=== PATIENT | female | born 1985 | race Caucasian/White ===

== ENCOUNTER 2016-07-04 00:25 | Emergency (ER) | payer OTHER ==
--- NOTE | 2016-07-04 01:46 | ED CLINICAL REPORT ---
Clinical Report - Physicians/Mid Levels [facility] [address] [place] [address] 07/04/2016 0:26 Patient: JUNIOR BOWLES Time Seen: 00:51. Arrived- By private vehicle. Historian- patient. HISTORY OF PRESENT ILLNESS Chief Complaint: COUGH, CHILLS, MUSCLE ACHES and "FLU". This started yesterday and is still present. It was gradual in onset and has been constant and waxing/waning. The illness is described as moderate. The patient has had a cough, a sore throat, nasal congestion, a subjective fever and muscle aches. She has had a nasal discharge. No sputum production. She has had mild chest discomfort (with coughing). REVIEW OF SYSTEMS No chills, fever, sweats, calf pain or chest pain. No cough, difficulty breathing, pedal edema, palpitations or abdominal pain. No constipation, diarrhea, nausea, vomiting or urinary problems. All systems otherwise negative, except as recorded above. PAST HISTORY Problems: Obesity. Sprain. ANXIETY. DEPRESSION. UTICARIA. GERD. Diabetes Mellitus. Additional Surgeries: Appendectomy. Medications: A DIABETIC MEDICATION PT UNSURE OF. Novalog (sliding scale ). HydrOXYzine HCl Oral. Omeprazole Oral. Sertraline HCl Oral. SulfaSALAzine Oral. Allergies: Amoxicillin. SOCIAL HISTORY Former smoker. No alcohol use or drug use. FAMILY HISTORY No significant family medical history. ADDITIONAL NOTES The nursing notes have been reviewed. PHYSICAL EXAM Vital Signs: 07/04/2016 00:43 BP: 135/77. HR: 71. RR: 20. O2 saturation: 97%. Temp: 98.5 F. Pain level now: 7/10. Have been reviewed. Appearance: Alert. She is morbidly obese. Eyes: Pupils equal, round and reactive to light. ENT: Minimal, thin, clear nasal discharge present. Pharynx normal. Uvula midline. Neck: Normal inspection. Neck supple. CVS: Normal heart rate and rhythm. Heart sounds normal. Respiratory: No respiratory distress. Breath sounds normal. Abdomen: Soft and nontender. No organomegaly. Back: Normal inspection. No CVA tenderness. Skin: Skin warm and dry. Normal skin color. Normal skin turgor. Extremities: Extremities exhibit normal ROM. No lower extremity edema. PROGRESS AND PROCEDURES Course of Care: Patient is stable. Patient/family counseled. Old medical records ordered. Disposition: Discharged. Condition: stable. CLINICAL IMPRESSION Acute upper respiratory infection. INSTRUCTIONS Drink plenty of fluids. Warnings: GENERAL WARNINGS: Return or contact your physician immediately if your condition worsens or changes unexpectedly, if not improving as expected, or if other problems arise. OTC Medications: Acetaminophen (available over the counter): take according to label instructions. Motrin (available over the counter): take according to label instructions. Follow-up: Follow up with your doctor in seven days if not better. Understanding of the discharge instructions verbalized by patient. (Electronically signed by Juan Antonio Yoder MD 07/05/2016 21:19)
--- NOTE | 2016-07-04 01:46 | ED NURSING NOTES ---
Clinical Report - Nurses [facility] [address] [place] [address] 07/04/2016 0:26 Patient: JUNIOR BOWLES TRIAGE Triage time 00:43. Acuity: LEVEL 3. Chief Complaint: MUSCLE ACHES, HEADACHE, NASAL CONGESTION, SORE THROAT and COUGH. 00:50. Alert. SEPSIS SCREEN: Sepsis Screen. Negative (no infection suspected/documented). FANNY COMA SCORE: [place] Coma Scale: 15- eyes open spontaneously (4); best verbal response- oriented x 4 (5); best motor response- obeys commands (6). --00:50 Maximo Alvarez R.N. 00:43 07/04/16. BP: 135/77. HR: 71. RR: 20. O2 saturation: 97% on room air. Temp: 98.5 F. Pain level now: 11/21. --00:50 Maximo Alvarez R.N. Weight: 114.3 kg stated. Height/Length: 61 inches Per Patient. BMI: 47.6. --00:49 Maximo Alvarez R.N. Medications HydrOXYzine HCl Oral. Omeprazole Oral. Sertraline HCl Oral. SulfaSALAzine Oral. --00:47 Maximo Alvarez R.N. Novalog (sliding scale ). --00:47 Maximo Alvarez R.N. A DIABETIC MEDICATION PT UNSURE OF. --00:48 Maximo Alvarez R.N. Medication/allergy information source: the patient. --00:50 Maxiom Alvarez R.N. Allergies Amoxicillin. --00:47 Maximo Alvarez R.N. History Arrived by private vehicle. Historian: patient. Accompanied by family. Primary physician ([facility]). This started yesterday. 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 PAST MEDICAL HX: Immunizations: up-to-date. Last normal menstrual period was 4 weeks ago. SOCIAL HX: Former smoker, end date 2013. No alcohol use or drug use. No infectious disease exposure. ABUSE ASSESSMENT: No report of abuse. FALL RISK ASSESSMENT: Fall risk assessment completed. No fall risk identified. NUTRITIONAL RISK ASSESSMENT: The nutritional risk assessment revealed no deficiencies. FUNCTIONAL ASSESSMENT: Functional assessment: no impairments noted. LEARNING NEEDS ASSESSMENT: The learning needs assessment revealed no barriers. SKIN INTEGRITY ASSESSMENT: Skin integrity risk assessment completed. No skin integrity risk identified. --00:50 Maximo Alvarez R.N. PROBLEMS: ANXIETY. DEPRESSION. UTICARIA. GERD. Diabetes Mellitus. --00:48 Maximo Alvarez R.N. Obesity. --00:50 Maximo Alvarez R.N. ADDITIONAL SURGERIES: Appendectomy. --00:48 Maximo Alvarez R.N. Interventions ID band on patient. To treatment room. --00:50 Maximo Alvarez R.N. PHYSICAL ASSESSMENT 00:50. Ambulatory to room. Patient gowned. GENERAL / NEURO / PSYCH: Alert. Oriented X 4. HEENT: No facial asymmetry noted. Mucous membranes are pink. RESPIRATORY: Respirations not labored. SKIN: Skin intact. Skin is warm and dry. Normal skin turgor. --00:51 Maximo Alvarez R.N. NURSING PROGRESS NOTES 00:51. Head of bed elevated. Two patient identifiers checked. Call light placed in reach. Bed placed in lowest position. Brakes of bed on. Patient ready for evaluation- chart flagged. --00:51 Maximo Alvarez R.N. 00:56. Patient ID band checked for patient name: patient confirmed. Flu swab obtained by RN via nasal pharyngeal swab. Labeled in the presence of the patient and sent to lab. --00:57 Maximo Alvarez R.N. 01:48. The patient is calm and resting quietly. RESPIRATORY: No respiratory distress. SKIN: Skin is warm and dry. Skin color within normal limits. --01:53 Maximo Alvarez R.N. DISPOSITION / DISCHARGE Departure time: 01:51. Condition at departure: stable. No learning barriers present. Discharge instructions provided and reviewed with the patient. Patient verbalized understanding. Written instructions provided in Pashto. The patient was discharged home and unaccompanied at time of discharge. She left the Emergency Department ambulatory and via private vehicle. Patient driving. FALL RISK ASSESSMENT: Fall risk assessment completed. No fall risk identified. --01:52 Maximo Alvarez R.N. 01:48 07/04/16. BP: 127/80. HR: 86. RR: 17. O2 saturation: 99% on room air. Pain level now: 09/21. --01:52 Maximo Alvarez R.N. Locked/Released at 07/04/2016 1:53 by Maximo Alvarez R.N.
--- NOTE | 2016-07-04 01:46 | ED CLINICAL REPORT ---
Clinical Report - Physicians/Mid Levels [facility] [address] [place] [address] 07/04/2016 0:26 Patient: JUNIOR BOWLES Time Seen: 00:51. Arrived- By private vehicle. Historian- patient. HISTORY OF PRESENT ILLNESS Chief Complaint: COUGH, CHILLS, MUSCLE ACHES and "FLU". This started yesterday and is still present. It was gradual in onset and has been constant and waxing/waning. The illness is described as moderate. The patient has had a cough, a sore throat, nasal congestion, a subjective fever and muscle aches. She has had a nasal discharge. No sputum production. She has had mild chest discomfort (with coughing). REVIEW OF SYSTEMS No chills, fever, sweats, calf pain or chest pain. No cough, difficulty breathing, pedal edema, palpitations or abdominal pain. No constipation, diarrhea, nausea, vomiting or urinary problems. All systems otherwise negative, except as recorded above. PAST HISTORY Problems: Obesity. Sprain. ANXIETY. DEPRESSION. UTICARIA. GERD. Diabetes Mellitus. Additional Surgeries: Appendectomy. Medications: A DIABETIC MEDICATION PT UNSURE OF. Novalog (sliding scale ). HydrOXYzine HCl Oral. Omeprazole Oral. Sertraline HCl Oral. SulfaSALAzine Oral. Allergies: Amoxicillin. SOCIAL HISTORY Former smoker. No alcohol use or drug use. FAMILY HISTORY No significant family medical history. ADDITIONAL NOTES The nursing notes have been reviewed. PHYSICAL EXAM Vital Signs: 07/04/2016 00:43 BP: 135/77. HR: 71. RR: 20. O2 saturation: 97%. Temp: 98.5 F. Pain level now: 7/10. Have been reviewed. Appearance: Alert. She is morbidly obese. Eyes: Pupils equal, round and reactive to light. ENT: Minimal, thin, clear nasal discharge present. Pharynx normal. Uvula midline. Neck: Normal inspection. Neck supple. CVS: Normal heart rate and rhythm. Heart sounds normal. Respiratory: No respiratory distress. Breath sounds normal. Abdomen: Soft and nontender. No organomegaly. Back: Normal inspection. No CVA tenderness. Skin: Skin warm and dry. Normal skin color. Normal skin turgor. Extremities: Extremities exhibit normal ROM. No lower extremity edema. PROGRESS AND PROCEDURES Course of Care: Patient is stable. Patient/family counseled. Old medical records ordered. Disposition: Discharged. Condition: stable. CLINICAL IMPRESSION Acute upper respiratory infection. INSTRUCTIONS Drink plenty of fluids. Warnings: GENERAL WARNINGS: Return or contact your physician immediately if your condition worsens or changes unexpectedly, if not improving as expected, or if other problems arise. OTC Medications: Acetaminophen (available over the counter): take according to label instructions. Motrin (available over the counter): take according to label instructions. Follow-up: Follow up with your doctor in seven days if not better. Understanding of the discharge instructions verbalized by patient. (Electronically signed by Juan Antonio Yoder MD 07/05/2016 21:19)
--- NOTE | 2016-07-04 01:46 | ED NURSING NOTES ---
Clinical Report - Nurses [facility] [address] [place] [address] 07/04/2016 0:26 Patient: JUNIOR BOWLES TRIAGE Triage time 00:43. Acuity: LEVEL 3. Chief Complaint: MUSCLE ACHES, HEADACHE, NASAL CONGESTION, SORE THROAT and COUGH. 00:50. Alert. SEPSIS SCREEN: Sepsis Screen. Negative (no infection suspected/documented). FANNY COMA SCORE: [place] Coma Scale: 15- eyes open spontaneously (4); best verbal response- oriented x 4 (5); best motor response- obeys commands (6). --00:50 Maximo Alvarez R.N. 00:43 07/04/16. BP: 135/77. HR: 71. RR: 20. O2 saturation: 97% on room air. Temp: 98.5 F. Pain level now: 11/21. --00:50 Maximo Alvarez R.N. Weight: 114.3 kg stated. Height/Length: 61 inches Per Patient. BMI: 47.6. --00:49 Maximo Alvarez R.N. Medications HydrOXYzine HCl Oral. Omeprazole Oral. Sertraline HCl Oral. SulfaSALAzine Oral. --00:47 Maximo Alvarez R.N. Novalog (sliding scale ). --00:47 Maximo Alvarez R.N. A DIABETIC MEDICATION PT UNSURE OF. --00:48 Maximo Alvarez R.N. Medication/allergy information source: the patient. --00:50 Maximo Alvarez R.N. Allergies Amoxicillin. --00:47 Maximo Alvarez R.N. History Arrived by private vehicle. Historian: patient. Accompanied by family. Primary physician ([facility]). This started yesterday. 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 PAST MEDICAL HX: Immunizations: up-to-date. Last normal menstrual period was 4 weeks ago. SOCIAL HX: Former smoker, end date 2013. No alcohol use or drug use. No infectious disease exposure. ABUSE ASSESSMENT: No report of abuse. FALL RISK ASSESSMENT: Fall risk assessment completed. No fall risk identified. NUTRITIONAL RISK ASSESSMENT: The nutritional risk assessment revealed no deficiencies. FUNCTIONAL ASSESSMENT: Functional assessment: no impairments noted. LEARNING NEEDS ASSESSMENT: The learning needs assessment revealed no barriers. SKIN INTEGRITY ASSESSMENT: Skin integrity risk assessment completed. No skin integrity risk identified. --00:50 Maximo Alvarez R.N. PROBLEMS: ANXIETY. DEPRESSION. UTICARIA. GERD. Diabetes Mellitus. --00:48 Maximo Alvarez R.N. Obesity. --00:50 Maximo Alvarez R.N. ADDITIONAL SURGERIES: Appendectomy. --00:48 Maximo Alvarez R.N. Interventions ID band on patient. To treatment room. --00:50 Maximo Alvarez R.N. PHYSICAL ASSESSMENT 00:50. Ambulatory to room. Patient gowned. GENERAL / NEURO / PSYCH: Alert. Oriented X 4. HEENT: No facial asymmetry noted. Mucous membranes are pink. RESPIRATORY: Respirations not labored. SKIN: Skin intact. Skin is warm and dry. Normal skin turgor. --00:51 Maximo Alvarez R.N. NURSING PROGRESS NOTES 00:51. Head of bed elevated. Two patient identifiers checked. Call light placed in reach. Bed placed in lowest position. Brakes of bed on. Patient ready for evaluation- chart flagged. --00:51 Maximo Alvarez R.N. 00:56. Patient ID band checked for patient name: patient confirmed. Flu swab obtained by RN via nasal pharyngeal swab. Labeled in the presence of the patient and sent to lab. --00:57 Maximo Alvarez R.N. 01:48. The patient is calm and resting quietly. RESPIRATORY: No respiratory distress. SKIN: Skin is warm and dry. Skin color within normal limits. --01:53 Maximo Alvarez R.N. DISPOSITION / DISCHARGE Departure time: 01:51. Condition at departure: stable. No learning barriers present. Discharge instructions provided and reviewed with the patient. Patient verbalized understanding. Written instructions provided in Turkmen. The patient was discharged home and unaccompanied at time of discharge. She left the Emergency Department ambulatory and via private vehicle. Patient driving. FALL RISK ASSESSMENT: Fall risk assessment completed. No fall risk identified. --01:52 Maximo Alvarez R.N. 01:48 07/04/16. BP: 127/80. HR: 86. RR: 17. O2 saturation: 99% on room air. Pain level now: 09/21. --01:52 Maximo Alvarez R.N. Locked/Released at 07/04/2016 1:53 by Maximo Alvarez R.N.
--- NOTE | 2016-07-04 01:46 | ED ORDER SUMMARY ---
..... Patient: JUNIOR BOWLES OrderSheet [facility] VisitID: [id number] [address] [place] [address] 31y, F Registration Date/Time: 07/04/2016 ORDER SHEET Weight: 114.3 kg (stated) Allergies: Amoxicillin GENERAL ORDERS: Rapid Influenza Screen (Nasal Pharyngeal) (director content marketing) Urgent (00:51 07/04/2016 Brian SCHMITT) (Ack 0:52 Ivon DE OLIVEIRA Poultry Pathologist) (0:56 Yulia Canseco) MEDICATION ORDERS: IV FLUIDS: ORDER SHEET NOTES: [Electronically signed by Maximo Alvarez R.N. (01:53 07/04/2016)] [Electronically signed by Juan Antonio Yoder MD (21:19 07/05/2016)] [Electronically locked/signed by Maximo Alvarez R.N. (01:53 07/04/2016)]
--- NOTE | 2016-07-04 01:46 | ED ORDER SUMMARY ---
..... Patient: JUNIOR BOWLES OrderSheet [facility] VisitID: [id number] [address] [place] [address] 31y, F Registration Date/Time: 07/04/2016 ORDER SHEET Weight: 114.3 kg (stated) Allergies: Amoxicillin GENERAL ORDERS: Rapid Influenza Screen (Nasal Pharyngeal) (field observer) Urgent (00:51 07/04/2016 Brian SCHMITT) (Ack 0:52 Ivon DE OLIVEIRA Plant General Manager) (0:56 Yulia Canseco) MEDICATION ORDERS: IV FLUIDS: ORDER SHEET NOTES: [Electronically signed by Maximo Alvarez R.N. (01:53 07/04/2016)] [Electronically signed by Juan Antonio Yoder MD (21:19 07/05/2016)] [Electronically locked/signed by Maximo Alvarez R.N. (01:53 07/04/2016)]
--- NOTE | 2016-07-05 21:19 | ED MAR SUMMARY ---
..... Medication Administration Record [facility] [address], [place] [id number] Patient: JUNIOR BOWLES Visit ID: [id number] 31y, F Weight: 114.3 kg Height/Length: 61 in BMI: 47.6 ALLERGIES: Amoxicillin
--- NOTE | 2016-07-05 21:19 | ED MED RECONCILIATION SUMMARY ---
Patient: JUNIOR BOWLES Medication Reconciliation Report [facility] VisitID: [id number] [address] [place] [address] 31y, F Registration Date/Time: 07/04/2016 Weight: 114.3 kg Height/Length: 61 in. BMI: 47.6 ALLERGIES: Amoxicillin The patient's Home Medications are listed below: THE FOLLOWING MEDICATIONS NEED TO BE RECONCILED: A DIABETIC MEDICATION PT UNSURE OF HydrOXYzine HCl Oral Novalog, sliding scale Omeprazole Oral Sertraline HCl Oral SulfaSALAzine Oral The source(s) of the original Home Medication information: patient The following Medications were given to the patient in the Emergency Department: None. The following Medications were prescribed to the patient: Acetaminophen (available over the counter): take according to label instructions. -- Juan Antonio Yoder MD Motrin (available over the counter): take according to label instructions. -- Juan Antonio Yoder MD
--- NOTE | 2016-07-05 21:19 | ED MED RECONCILIATION SUMMARY ---
Patient: JUNIOR BOWLES Medication Reconciliation Report [facility] VisitID: [id number] [address] [place] [address] 31y, F Registration Date/Time: 07/04/2016 Weight: 114.3 kg Height/Length: 61 in. BMI: 47.6 ALLERGIES: Amoxicillin The patient's Home Medications are listed below: THE FOLLOWING MEDICATIONS NEED TO BE RECONCILED: A DIABETIC MEDICATION PT UNSURE OF HydrOXYzine HCl Oral Novalog, sliding scale Omeprazole Oral Sertraline HCl Oral SulfaSALAzine Oral The source(s) of the original Home Medication information: patient The following Medications were given to the patient in the Emergency Department: None. The following Medications were prescribed to the patient: Acetaminophen (available over the counter): take according to label instructions. -- Juan Antonio Yoder MD Motrin (available over the counter): take according to label instructions. -- Juan Antonio Yoder MD
--- NOTE | 2016-07-05 21:19 | ED DISCHARGE INSTRUCTIONS ---
Patient: JUNIOR BOWLES General Instructions [facility] VisitID: [id number] [place] [address] 31y, F Registration Date/Time: 07/04/2016 Acute upper respiratory infection. INSTRUCTIONS Drink plenty of fluids. Warnings: GENERAL WARNINGS: Return or contact your physician immediately if your condition worsens or changes unexpectedly, if not improving as expected, or if other problems arise. OTC Medications: Acetaminophen (available over the counter): take according to label instructions. Motrin (available over the counter): take according to label instructions. Follow-up: Follow up with your doctor in seven days if not better. Understanding of the discharge instructions verbalized by patient. ADDITIONAL INFORMATION Viral Respiratory Illness [Adult] You have an Upper Respiratory Illness (URI) caused by a virus. This illness is contagious during the first few days. It is spread through the air by coughing and sneezing or by direct contact (touching the sick person and then touching your own eyes, nose or mouth). Most viral illnesses go away within 7-10 days with rest and simple home remedies. Sometimes, the illness may last for several weeks. Antibiotics will not kill a virus and are generally not prescribed for this condition. Home Care: 1) If symptoms are severe, rest at home for the first 2-3 days. When you resume activity, don't let yourself get too tired. 2) Avoid being exposed to cigarette smoke (yours or others). 3) Tylenol (acetaminophen) or ibuprofen (Advil, Motrin) will help fever, muscle aching and headache. (Persons under 18 with fever should not take aspirin since this may cause liver damage.) 4) Your appetite may be poor, so a light diet is fine. Avoid dehydration by drinking 6-8 glasses of fluids per day (water, soft drinks, juices, tea, soup). Extra fluids will help loosen secretions in the nose and lungs. 5) [id number] cold medicines will not shorten the length of time youre sick, but they may be helpful for the following symptoms: cough (Robitussin DM); sore throat (Chloraseptic lozenges or spray); nasal and sinus congestion (Actifed, Sudafed, Chlortrimeton). Follow Up with your doctor or as advised if you dont improve over the next week. Get Prompt Medical Attention if any of the following occur: -- Cough with lots of colored sputum (mucus) or blood in your sputum -- Chest pain, shortness of breath, wheezing or have trouble breathing -- Severe headache; face, neck or ear pain -- Fever over 100.4 F (38.0 C) for more than three days -- You cant swallow due to throat pain Acetaminophen Oral tablet What is this medicine? ACETAMINOPHEN (a set a EPIFANIO maddy fen) is a pain reliever. It is used to treat mild pain and fever. How should I use this medicine? Take this medicine by mouth with a glass of water. Follow the directions on the package or prescription label. Take your medicine at regular intervals. Do not take your medicine more often than directed. Talk to your environmental restoration planner regarding the use of this medicine in children. While this drug may be prescribed for children as young as 6 years of age for selected conditions, precautions do apply. What side effects may I notice from receiving this medicine? Side effects that you should report to your doctor or health care center manager as soon as possible: allergic reactions like skin rash, itching or hives, swelling of the face, lips, or tongue breathing problems fever or sore throat redness, blistering, peeling or loosening of the skin, including inside the mouth trouble passing urine or change in the amount of urine unusual bleeding or bruising unusually weak or tired yellowing of the eyes or skin Side effects that usually do not require medical attention (report to your doctor or health care center manager if they continue or are bothersome): headache nausea, stomach upset What may interact with this medicine? alcohol imatinib isoniazid other medicines with acetaminophen What if I miss a dose? If you miss a dose, take it as soon as you can. If it is almost time for your next dose, take only that dose. Do not take double or extra doses. Where should I keep my medicine? Keep out of reach of children. Store at room temperature between 20 and 25 degrees C (68 and 77 degrees F). Protect from moisture and heat. Throw away any unused medicine after the expiration date. What should I tell my health care provider before I take this medicine? They need to know if you have any of these conditions: if you frequently drink alcohol containing drinks liver disease an unusual or allergic reaction to acetaminophen, other medicines, foods, dyes or preservatives or trying to get breast-feeding What should I watch for while using this medicine? Tell your doctor or health care center manager if the pain lasts more than 10 days (5 days for children), if it gets worse, or if there is a new or different kind of pain. Also, check with your doctor if a fever lasts for more than 3 days. Do not take other medicines that contain acetaminophen with this medicine. Always read labels carefully. If you have questions, ask your doctor or pharmacist. If you take too much acetaminophen get medical help right away. Too much acetaminophen can be very dangerous and cause liver damage. Even if you do not have symptoms, it is important to get help right away. Ibuprofen Oral tablet What is this medicine? IBUPROFEN (eye BYOO proe fen) is a non-steroidal anti-inflammatory drug (NSAID). It is used for dental pain, fever, headaches or migraines, osteoarthritis, rheumatoid arthritis, or painful monthly periods. It can also relieve minor aches and pains caused by a cold, flu, or sore throat. How should I use this medicine? Take this medicine by mouth with a glass of water. Follow the directions on the prescription label. Take this medicine with food if your stomach gets upset. Try to not lie down for at least 10 minutes after you take the medicine. Take your medicine at regular intervals. Do not take your medicine more often than directed. A special MedGuide will be given to you by the pharmacist with each prescription and refill. Be sure to read this information carefully each time. Talk to your environmental restoration planner regarding the use of this medicine in children. Special care may be needed. What side effects may I notice from receiving this medicine? Side effects that you should report to your doctor or health care center manager as soon as possible: allergic reactions like skin rash, itching or hives, swelling of the face, lips, or tongue black or bloody stools, blood in the urine or in vomit breathing problems changes in vision chest pain general ill feeling or flu-like symptoms nausea or vomiting redness, blistering, peeling or loosening of the skin, including inside the mouth slurred speech or weakness on one side of the body stomach pain unexplained weight gain or swelling unusually weak or tired yellowing of eyes or skin Side effects that usually do not require medical attention (report to your doctor or health care center manager if they continue or are bothersome): constipation or diarrhea dizziness gas or heartburn stomach upset What may interact with this medicine? Do not take this medicine with any of the following medications: cidofovir ketorolac methotrexate pemetrexed This medicine may also interact with the following medications: alcohol aspirin diuretics lithium other drugs for inflammation like prednisone warfarin What if I miss a dose? If you miss a dose, take it as soon as you can. If it is almost time for your next dose, take only that dose. Do not take double or extra doses. Where should I keep my medicine? Keep out of the reach of children. Store at room temperature between 15 and 30 degrees C (59 and 86 degrees F). Keep container tightly closed. Throw away any unused medicine after the expiration date. What should I tell my health care provider before I take this medicine? They need to know if you have any of these conditions: asthma cigarette smoker drink more than 3 alcohol containing drinks a day heart disease or circulation problems such as heart failure or leg edema (fluid retention) high blood pressure kidney disease liver disease stomach bleeding or ulcers an unusual or allergic reaction to ibuprofen, aspirin, other NSAIDS, other medicines, foods, dyes, or preservatives or trying to get breast-feeding What should I watch for while using this medicine? Tell your doctor or healthcare professional if your symptoms do not start to get better or if they get worse. This medicine does not prevent heart attack or stroke. In fact, this medicine may increase the chance of a heart attack or stroke. The chance may increase with longer use of this medicine and in people who have heart disease. If you take aspirin to prevent heart attack or stroke, talk with your doctor or health care center manager. Do not take other medicines that contain aspirin, ibuprofen, or naproxen with this medicine. Side effects such as stomach upset, nausea, or ulcers may be more likely to occur. Many medicines available without a prescription should not be taken with this medicine. This medicine can cause ulcers and bleeding in the stomach and intestines at any time during treatment. Ulcers and bleeding can happen without warning symptoms and can cause . To reduce your risk, do not smoke cigarettes or drink alcohol while you are taking this medicine. You may get drowsy or dizzy. Do not drive, use machinery, or do anything that needs mental alertness until you know how this medicine affects you. Do not stand or sit up quickly, especially if you are an older patient. This reduces the risk of dizzy or fainting spells. This medicine can cause you to bleed more easily. Try to avoid damage to your teeth and gums when you brush or floss your teeth. You have been given the following additional information: Uri, Viral, No Abx (Adult) Acetaminophen Oral tablet Ibuprofen Oral tablet (Electronically signed by Juan Antonio Yoder MD 07/05/2016 21:19)
--- NOTE | 2016-07-05 21:19 | ED MAR SUMMARY ---
..... Medication Administration Record [facility] [address] [place], [place] [id number] Patient: JUNIOR BOWLES Visit ID: [id number] 31y, F Weight: 114.3 kg Height/Length: 61 in BMI: 47.6 ALLERGIES: Amoxicillin
== END 2016-07-04 01:51 | disposition home or self-care (01) ==
LOC: ED SRH 00:25
DX: J06.9 Acute upper respiratory infection, unspecified (principal); E11.9 Type 2 diabetes mellitus without complications; Z79.4 Long term (current) use of insulin; Z79.899 Other long term (current) drug therapy; Z88.0 Allergy status to penicillin; Z87.891 Personal history of nicotine dependence
CPT/HCPCS: 91400

== ENCOUNTER 2016-08-01 22:01 | Emergency (ER) | payer OTHER ==
--- NOTE | 2016-08-01 23:52 | DIAGNOSTIC IMAGING REPORT ---
PROCEDURE: XR CHEST 1 VIEW INDICATION: CHEST PAIN TECHNIQUE: Single view chest. 2345 hours COMPARISON: None. FINDINGS: The cardiomediastinal contour and central vasculature are normal. The lungs are clear without focal consolidation, pleural effusion or pneumothorax. The osseous structures are intact. IMPRESSION: 1. No evidence of acute cardiopulmonary disease.
--- NOTE | 2016-08-02 01:15 | ED NURSING NOTES ---
Clinical Report - Nurses [facility] [address] [place] [address] 08/01/2016 22:00 Patient: JUNIOR BOWLES TRIAGE Triage time 22:13. Acuity: LEVEL 2. Chief Complaint: CHEST PAIN. --22:17 Sheriff Cuevas R.N. 22:13 08/01/16. BP: 129/82 (regular adult cuff) taken on the left arm. HR: 71. RR: 18. O2 saturation: 97%. Temp: 98.4 F. Pain level now: 10/22. --22:17 Sheriff Cuevas R.N. 22:13 08/01/16. BP: 129/82 (regular adult cuff) taken on the left arm. HR: 71. RR: 18. O2 saturation: 97%. Temp: 98.4 F. Pain level now: 10/22. --22:17 Sheriff Cuevas R.N. Weight: 111.1 kg stated. Height/Length: 68 inches Per Patient. BMI: 37.3. --22:20 Sheriff Cuevas R.N. Medications A DIABETIC MEDICATION PT UNSURE OF. HydrOXYzine HCl Oral. Novalog (sliding scale ). Omeprazole Oral. Sertraline HCl Oral. SulfaSALAzine Oral. --22:15 Sheriff Cuevas R.N. Allergies Amoxicillin. --22:15 Sheriff Cuevas R.N. History Arrived by private vehicle. Historian: patient. Onset. (1 week ago). ( On and off chest pain radiating to back and Lt arm for 1 week.). --22:17 Sheriff Cuevas R.N. PROBLEMS: URI. Obesity. Sprain. ANXIETY. DEPRESSION. UTICARIA. GERD. Diabetes Mellitus. --22:16 Sheriff Cuevas R.N. Interventions ID band on patient. To room. --22:17 Sheriff Cuevas R.N. PHYSICAL ASSESSMENT Ambulatory to room. Patient gowned. GENERAL / NEURO / PSYCH: Alert. Oriented X 4. HEENT: Mucous membranes are pink. RESPIRATORY: Respirations not labored. CVS: Normal sinus rhythm noted. Pulses within normal limits. Capillary refill less than 2 seconds. SKIN: Skin is warm and dry. --22:18 Sheriff Cuevas R.N. NURSING PROGRESS NOTES Oxygen administered by nasal cannula at 2 liters. quality assurance monitor body and pulse oximeter placed on patient. Head of bed elevated. Reassurance given. Two patient identifiers checked. Call light placed in reach. Side rails up x 2. Bed placed in lowest position. Brakes of bed on. Patient ready for evaluation- chart flagged. --22:19 Sheriff Cuevas R.N. ( Report received from URIEL Zhu). --22:27 Chuck Johnson R.N. 22:30 08/01/2016 Site #1 started via IV in the right antecubital space with an 20g angiocath, with aseptic technique and good blood return; one attempt. Blood drawn: rainbow set. Labeled in the presence of the patient and sent to the lab. Saline lock flushed with 10 mL saline. --22:30 Regina Quinteros R.N. EKG time: (2329). EKG was performed by a tech and shown to the ED physician. --23:29 Amber Romero Portable chest x-ray performed and shown to the ED physician. --23:45 Regina Quinteros R.N. Patient ID band checked for patient name and birthdate: patient confirmed urine collected with return of yellow-colored reinier-colored clear urine; sample sent to lab. Specimen labeled in the presence of the patient. Urine test negative. water control supervisor check passed. --00:19 Regina Quinteros R.N. EKG time: (0027). EKG was performed by a tech and shown to the ED physician. ( repeat ekg). --00:41 Amber Romero. DISPOSITION / DISCHARGE 01:46 08/02/2016 Site #1 removed upon discharge. Catheter intact. Bandage applied. --01:46 Ajith Kemp Departure time: 01:48. Condition at departure: improved. No learning barriers present. Discharge instructions provided and reviewed with the patient. Reviewed medication(s). Treatments reviewed. Reviewed referrals. Follow up contact number. Patient verbalized understanding. Written instructions provided in Tamazight. No warning instructions, diet instructions, activity restrictions or stop smoking instructions. No work note given or school note given. The patient was discharged by the physician. She was discharged home and accompanied by family. She left the Emergency Department ambulatory and via private vehicle. Family member driving. FALL RISK ASSESSMENT: Fall risk assessment completed. No fall risk identified. --01:48 Ajith Kemp 01:46 08/02/16. BP: 120/66. HR: 77. RR: 18. O2 saturation: 100%. Temp: deferred. Pain level now: 0/10. --01:48 Ajith Kemp Locked/Released at 08/02/2016 1:48 by Ajith Kemp
--- NOTE | 2016-08-02 01:15 | ED CLINICAL REPORT ---
Clinical Report - Physicians/Mid Levels [facility] [address] [place] [address] 08/01/2016 22:00 Patient: JUNIOR BOWLES Time Seen: 22:28; initial patient contact, initial documentation, patient care assumed. Arrived- By private vehicle. Historian- patient. HISTORY OF PRESENT ILLNESS Chief Complaint: CHEST PAIN and DISCOMFORT. At its maximum, severity described as 8 / 10. When seen in the E.D., severity described as 6 / 10. Modifying factors- worsened by deep breaths. (Palpation worsens). It is described as located in the right chest, central chest and left chest area and left shoulder and radiating to the left arm. This started about 1 weeks ago; Last night L chest and L arm. and is still present. It was abrupt in onset and has been intermittent. Onset during Fri evening at rest. No vomiting or diaphoresis. She has had mild difficulty breathing on exertion (had previously). Similar symptoms previously: None. Recent medical care: Not recently seen/assessed. REVIEW OF SYSTEMS Last normal menstrual period- May. No fever, chills, cough or pedal edema. She has had calf pain involving the left leg (tonight). She has had abdominal pain (cramping). No Hx of PUD. PAST HISTORY See nurses notes. [facility] PROBLEMS: URI. Obesity. Sprain. ANXIETY. DEPRESSION. UTICARIA. GERD. Diabetes Mellitus. --22:16 Sheriff Cuevas R.N. Hosp: DM, Chest pain - abnormal EKG - OK treatmill 4 years ago, Unknown Prov admit. (I wasn't doing well.) Ops: Appy. No history of coronary artery disease or pulmonary embolism. SOCIAL HISTORY No recent travel. Is a local resident. ADDITIONAL NOTES The nursing notes have been reviewed. PHYSICAL EXAM Vital Signs: 08/02/2016 01:46 BP: 120/66. HR: 77. RR: 18. O2 saturation: 100%. Pain level now: 0/10. 08/01/2016 22:13 BP: 129/82. HR: 71. RR: 18. O2 saturation: 97%. Temp: 98.4 F. Pain level now: 10/22. Appearance: Alert. No acute distress. Eyes: Eyes normal inspection. ENT: Pharynx normal. Neck: Normal inspection. CVS: Normal heart rate and rhythm. Heart sounds normal. Respiratory: No respiratory distress. Chest pain reproducible with palpation of the sternum and anterior chest wall and ribs and with deep breathing. Abdomen: Soft and nontender. Back: Normal external inspection. Skin: Skin warm. Normal skin color. Extremities: Extremities exhibit normal ROM. No lower extremity edema. LABS, X-RAYS, AND EKG EKG: EKG time: (2329). No acute process. No acute ischemia. EKG #2: Normal. Chest X-ray: Normal Chest X-Ray. (ROCEDURE: XR CHEST 1 VIEW INDICATION: CHEST PAIN TECHNIQUE: Single view chest. 2345 hours COMPARISON: None. FINDINGS: The cardiomediastinal contour and central vasculature are normal. The lungs are clear without focal consolidation, pleural effusion or pneumothorax. The osseous structures are intact. IMPRESSION: 1. No evidence of acute cardiopulmonary disease. Dictated by: CRUZ GIBBONS MD D: NORM;08/01/162351 <Electronically signed by CRUZ GIBBONS MD in OV> 08/01/162351). The X-rays were independently viewed by me and interpreted by the radiologist. Laboratory Tests: CBC w Diff: (ROQUE: 08/01/2016 22:25) ( MsgRcvd 08/01/2016 23:06) Final results Test Result Flag Units (Reference) WHITE BLOOD COUNT 10.3 K/uL (4.5-11.5) RED BLOOD COUNT 4.63 M/uL (4.00-5.20) HEMOGLOBIN 13.0 gm/dL (12.0-16.0) HEMATOCRIT 39.8 % (36.0-46.0) MEAN CELL VOLUME 86 fL (80-100) MEAN CORPUSCULAR HGB 28 pg (26-34) MEAN CORPUSCULAR HGB CONC 33 g/dL (31-37) RED CELL DISTRIBUTION WIDTH 13.7 % (11.6-14.8) PLATELET COUNT 243 K/uL (150-400) LYMPH % 32.9 % (25-40) MONO % 3.0 % (3-14) GRANULOCYTE % 64.1 (53-90) [id number]: (ROQUE: 08/01/2016 22:25) ( [facility] 08/01/2016 23:08) Final results Test Result Flag Units (Reference) D-DIMER QUANTITATIVE 0.30 ug/mLFEU (0.27-0.52) The primary value of this quantitative assay relates toits negative predictive value (i.e. exclusion) of pulmonaryembolism/deep vein thrombosis/DIC.Elevated levels of d-dimer may also occur with:, age, cancer, inflammation, liver disease,post-op, infection, hematoma, coronary disease, peripheralarteriopathy, bleeding disorders and thrombolytic treatment.Results should be correlated with other clinical andradiological data.Testing Methodology: Latex Immunoassay BNP: (ROQUE: 08/01/2016 22:25) ( [facility] 08/01/2016 23:25) Final results Test Result Flag Units (Reference) B-TYPE NATRIURETIC PEPTIDE 30.7 pg/ml (5-100) CHEM 13 PANEL: (ROQUE: 08/01/2016 22:25) ( [facility] 08/01/2016 23:36) Final results Test Result Flag Units (Reference) GLUCOSE 169 H mg/dL (70-110) BUN 8 mg/dL (7-18) CREATININE 0.7 mg/dL (0.6-1.3) Estimated GFR >60 mL/min Estimated GFR- >60 mL/min Note: Persistent reduction over 3 months in eGFR<60 mL/min/1.73 m2 defines CKD. Patients with eGFR values>=60 mL/min/1.73 m2 may also have CKD if evidence ofpersistent proteinuria. Additional information may be foundat www.kidney.org. SODIUM 140 mmol/L (136-145) POTASSIUM 3.5 mmol/L (3.5-5.1) CHLORIDE 104 mmol/L (98-107) CARBON DIOXIDE 25 mmol/L (21-32) CALCIUM 8.8 mg/dL (8.5-10.1) TOTAL PROTEIN 6.7 g/dL (6.4-8.2) ALBUMIN 3.2 L g/dL (3.3-5.0) BILIRUBIN, TOTAL 0.2 mg/dL (0.0-1.0) ALKALINE PHOSPHATASE 128 H U/L (46-116) AST (SGOT) 14 L U/L (15-37) ALT (SGPT) 24 U/L (12-78) CPK 81 U/L (24-260) TROPONIN I 0.05 ng/mL (0.00-1.5) TROPONIN REFERENCE RANGE:<0.1 NEGATIVE0.1-1.5 INDETERMINANT>1.5 POSITIVE MAGNESIUM 1.7 L mg/dL (1.8-2.4) . Bedside Tests: Urine dipstick; (HCG negative). PROGRESS AND PROCEDURES Course of Care: All clinical factors most consistent with chest wall pain. Differential Diagnosis: I considered costochondritis, pleurisy, myocardial infarction, intermediate coronary syndrome, unstable angina, aortic dissection, pericarditis, pulmonary embolism, pneumonia, pneumothorax, esophagitis and esophageal spasm as a possible cause of chest pain in this patient. Disposition: Discharged. Condition: stable. CLINICAL IMPRESSION Atypical chest pain Possible chest wall pain INSTRUCTIONS (THE PAIN IS FROM YOUR CHEST WALL TRY IBUPROFEN 400 MG THREE TIMES A DAY FOR 5 DAYS IMMEDIATE RECHECK IN THE ED FOR INCREASED SHORTNESS OF BREATH OR CHEST PAIN. SEE YOUR DR FOR SURE FOR A RE EXAM.). Follow-up: Follow up with your doctor Monday in four days. Reason for referral: RE EVALUATE FOR CHEST PAIN. (Electronically signed by Brown Ram MD 08/02/2016 21:05)
--- NOTE | 2016-08-02 01:15 | ED CLINICAL REPORT ---
Clinical Report - Physicians/Mid Levels [facility] [address] [place] [address] 08/01/2016 22:00 Patient: JUNIOR BOWLES Time Seen: 22:28; initial patient contact, initial documentation, patient care assumed. Arrived- By private vehicle. Historian- patient. HISTORY OF PRESENT ILLNESS Chief Complaint: CHEST PAIN and DISCOMFORT. At its maximum, severity described as 8 / 10. When seen in the E.D., severity described as 6 / 10. Modifying factors- worsened by deep breaths. (Palpation worsens). It is described as located in the right chest, central chest and left chest area and left shoulder and radiating to the left arm. This started about 1 weeks ago; Last night L chest and L arm. and is still present. It was abrupt in onset and has been intermittent. Onset during Fri evening at rest. No vomiting or diaphoresis. She has had mild difficulty breathing on exertion (had previously). Similar symptoms previously: None. Recent medical care: Not recently seen/assessed. REVIEW OF SYSTEMS Last normal menstrual period- May. No fever, chills, cough or pedal edema. She has had calf pain involving the left leg (tonight). She has had abdominal pain (cramping). No Hx of PUD. PAST HISTORY See nurses notes. [facility] PROBLEMS: URI. Obesity. Sprain. ANXIETY. DEPRESSION. UTICARIA. GERD. Diabetes Mellitus. --22:16 Sheriff Cuevas R.N. Hosp: DM, Chest pain - abnormal EKG - OK treatmill 4 years ago, Unknown Prov admit. (I wasn't doing well.) Ops: Appy. No history of coronary artery disease or pulmonary embolism. SOCIAL HISTORY No recent travel. Is a local resident. ADDITIONAL NOTES The nursing notes have been reviewed. PHYSICAL EXAM Vital Signs: 08/02/2016 01:46 BP: 120/66. HR: 77. RR: 18. O2 saturation: 100%. Pain level now: 0/10. 08/01/2016 22:13 BP: 129/82. HR: 71. RR: 18. O2 saturation: 97%. Temp: 98.4 F. Pain level now: 10/22. Appearance: Alert. No acute distress. Eyes: Eyes normal inspection. ENT: Pharynx normal. Neck: Normal inspection. CVS: Normal heart rate and rhythm. Heart sounds normal. Respiratory: No respiratory distress. Chest pain reproducible with palpation of the sternum and anterior chest wall and ribs and with deep breathing. Abdomen: Soft and nontender. Back: Normal external inspection. Skin: Skin warm. Normal skin color. Extremities: Extremities exhibit normal ROM. No lower extremity edema. LABS, X-RAYS, AND EKG EKG: EKG time: (2329). No acute process. No acute ischemia. EKG #2: Normal. Chest X-ray: Normal Chest X-Ray. (ROCEDURE: XR CHEST 1 VIEW INDICATION: CHEST PAIN TECHNIQUE: Single view chest. 2345 hours COMPARISON: None. FINDINGS: The cardiomediastinal contour and central vasculature are normal. The lungs are clear without focal consolidation, pleural effusion or pneumothorax. The osseous structures are intact. IMPRESSION: 1. No evidence of acute cardiopulmonary disease. Dictated by: CRUZ GIBBONS MD D: NORM;08/01/162351 <Electronically signed by CRUZ GIBBONS MD in OV> 08/01/162351). The X-rays were independently viewed by me and interpreted by the radiologist. Laboratory Tests: CBC w Diff: (ROQUE: 08/01/2016 22:25) ( MsgRcvd 08/01/2016 23:06) Final results Test Result Flag Units (Reference) WHITE BLOOD COUNT 10.3 K/uL (4.5-11.5) RED BLOOD COUNT 4.63 M/uL (4.00-5.20) HEMOGLOBIN 13.0 gm/dL (12.0-16.0) HEMATOCRIT 39.8 % (36.0-46.0) MEAN CELL VOLUME 86 fL (80-100) MEAN CORPUSCULAR HGB 28 pg (26-34) MEAN CORPUSCULAR HGB CONC 33 g/dL (31-37) RED CELL DISTRIBUTION WIDTH 13.7 % (11.6-14.8) PLATELET COUNT 243 K/uL (150-400) LYMPH % 32.9 % (25-40) MONO % 3.0 % (3-14) GRANULOCYTE % 64.1 (53-90) [id number]: (ROQUE: 08/01/2016 22:25) ( [facility] 08/01/2016 23:08) Final results Test Result Flag Units (Reference) D-DIMER QUANTITATIVE 0.30 ug/mLFEU (0.27-0.52) The primary value of this quantitative assay relates toits negative predictive value (i.e. exclusion) of pulmonaryembolism/deep vein thrombosis/DIC.Elevated levels of d-dimer may also occur with:, age, cancer, inflammation, liver disease,post-op, infection, hematoma, coronary disease, peripheralarteriopathy, bleeding disorders and thrombolytic treatment.Results should be correlated with other clinical andradiological data.Testing Methodology: Latex Immunoassay BNP: (ROQUE: 08/01/2016 22:25) ( [facility] 08/01/2016 23:25) Final results Test Result Flag Units (Reference) B-TYPE NATRIURETIC PEPTIDE 30.7 pg/ml (5-100) CHEM 13 PANEL: (ROQUE: 08/01/2016 22:25) ( [facility] 08/01/2016 23:36) Final results Test Result Flag Units (Reference) GLUCOSE 169 H mg/dL (70-110) BUN 8 mg/dL (7-18) CREATININE 0.7 mg/dL (0.6-1.3) Estimated GFR >60 mL/min Estimated GFR- >60 mL/min Note: Persistent reduction over 3 months in eGFR<60 mL/min/1.73 m2 defines CKD. Patients with eGFR values>=60 mL/min/1.73 m2 may also have CKD if evidence ofpersistent proteinuria. Additional information may be foundat www.kidney.org. SODIUM 140 mmol/L (136-145) POTASSIUM 3.5 mmol/L (3.5-5.1) CHLORIDE 104 mmol/L (98-107) CARBON DIOXIDE 25 mmol/L (21-32) CALCIUM 8.8 mg/dL (8.5-10.1) TOTAL PROTEIN 6.7 g/dL (6.4-8.2) ALBUMIN 3.2 L g/dL (3.3-5.0) BILIRUBIN, TOTAL 0.2 mg/dL (0.0-1.0) ALKALINE PHOSPHATASE 128 H U/L (46-116) AST (SGOT) 14 L U/L (15-37) ALT (SGPT) 24 U/L (12-78) CPK 81 U/L (24-260) TROPONIN I 0.05 ng/mL (0.00-1.5) TROPONIN REFERENCE RANGE:<0.1 NEGATIVE0.1-1.5 INDETERMINANT>1.5 POSITIVE MAGNESIUM 1.7 L mg/dL (1.8-2.4) . Bedside Tests: Urine dipstick; (HCG negative). PROGRESS AND PROCEDURES Course of Care: All clinical factors most consistent with chest wall pain. Differential Diagnosis: I considered costochondritis, pleurisy, myocardial infarction, intermediate coronary syndrome, unstable angina, aortic dissection, pericarditis, pulmonary embolism, pneumonia, pneumothorax, esophagitis and esophageal spasm as a possible cause of chest pain in this patient. Disposition: Discharged. Condition: stable. CLINICAL IMPRESSION Atypical chest pain Possible chest wall pain INSTRUCTIONS (THE PAIN IS FROM YOUR CHEST WALL TRY IBUPROFEN 400 MG THREE TIMES A DAY FOR 5 DAYS IMMEDIATE RECHECK IN THE ED FOR INCREASED SHORTNESS OF BREATH OR CHEST PAIN. SEE YOUR DR FOR SURE FOR A RE EXAM.). Follow-up: Follow up with your doctor Monday in four days. Reason for referral: RE EVALUATE FOR CHEST PAIN. (Electronically signed by Brown Ram MD 08/02/2016 21:05)
--- NOTE | 2016-08-02 01:15 | ED ORDER SUMMARY ---
..... Patient: JUNIOR BOWLES OrderSheet [facility] VisitID: [id number] [place] [address] 31y, F Registration Date/Time: 08/01/2016 ORDER SHEET Weight: 111.1 kg (stated) Allergies: Amoxicillin GENERAL ORDERS: Chest 1V Urgent (22:52 08/01/2016 Viridiana SCHMITT) (Ack 22:57 ALawrence ER Tech1) (23:45 RCollier R.N.) Event Specialist Product Demonstrator (Continuous) (22:52 08/01/2016 Viridiana SCHMITT) (Ack 22:57 ALawrence ER Tech1) (23:20 ALawrence ER Tech1) EKG - ER Repeat (in 45 minutes ie 1145 pm) Stat (22:52 08/01/2016 Viridiana SCHMTIT) (Ack 22:57 ALawrence ER Tech1) (0:45 LMuller) Cardiac Panel Stat (22:52 08/01/2016 Viridiana SCHMITT) (Ack 22:57 ALawrence ER Tech1) (23:19 ALawrence ER Tech1) BNP Urgent (22:52 08/01/2016 Viridiana SCHMITT) (Ack 22:57 ALawrence ER Tech1) (23:19 ALawrence ER Tech1) D-Dimer Urgent (22:52 08/01/2016 Viridiana SCHMITT) (Ack 22:57 ALawrence ER Tech1) (23:19 ALawrence ER Tech1) Oxygen (2 L/min) (NC) (22:52 08/01/2016 Viridiana SCHMITT) (Ack 22:57 ALawrence ER Tech1) (23:20 ALawrence ER Tech1) Pulse oximeter (22:52 08/01/2016 Viridiana SCHMITT) (Ack 22:57 ALawrence ER Tech1) (23:20 ALawrence ER Tech1) EKG - ER Stat (22:52 08/01/2016 Viridiana SCHMITT) (Ack 22:57 ALawrence ER Tech1) (23:29 LMuller) POC - Urine hCG (00:07 08/02/2016 Viridiana SCHMITT) (0:19 RCollier R.N.) MEDICATION ORDERS: IV FLUIDS: ORDER SHEET NOTES: [Electronically signed by Sasha Castro R.N. (01:48 08/02/2016)] [Electronically signed by Brown Ram MD (21:05 08/02/2016)] [Electronically locked/signed by Sasha Castro R.N. (01:48 08/02/2016)]
--- NOTE | 2016-08-02 01:15 | ED NURSING NOTES ---
Clinical Report - [facility] [address] [place] [address] 08/01/2016 22:00 Patient: JUNIOR BOWLES TRIAGE Triage time 22:13. Acuity: LEVEL 2. Chief Complaint: CHEST PAIN. --22:17 Sheriff Cuevas R.N. 22:13 08/01/16. BP: 129/82 (regular adult cuff) taken on the left arm. HR: 71. RR: 18. O2 saturation: 97%. Temp: 98.4 F. Pain level now: 10/22. --22:17 Sheriff Cuevas R.N. 22:13 08/01/16. BP: 129/82 (regular adult cuff) taken on the left arm. HR: 71. RR: 18. O2 saturation: 97%. Temp: 98.4 F. Pain level now: 10/22. --22:17 Sheriff Cuevas R.N. Weight: 111.1 kg stated. Height/Length: 68 inches Per Patient. BMI: 37.3. --22:20 Sheriff Cuevas R.N. Medications A DIABETIC MEDICATION PT UNSURE OF. HydrOXYzine HCl Oral. Novalog (sliding scale ). Omeprazole Oral. Sertraline HCl Oral. SulfaSALAzine Oral. --22:15 Sheriff Cuevas R.N. Allergies Amoxicillin. --22:15 Sheriff Cuevas R.N. History Arrived by private vehicle. Historian: patient. Onset. (1 week ago). ( On and off chest pain radiating to back and Lt arm for 1 week.). --22:17 Sheriff Cuevas R.N. PROBLEMS: URI. Obesity. Sprain. ANXIETY. DEPRESSION. UTICARIA. GERD. Diabetes Mellitus. --22:16 Sheriff Cuevas R.N. Interventions ID band on patient. To room. --22:17 Sheriff Cuevas R.N. PHYSICAL ASSESSMENT Ambulatory to room. Patient gowned. GENERAL / NEURO / PSYCH: Alert. Oriented X 4. HEENT: Mucous membranes are pink. RESPIRATORY: Respirations not labored. CVS: Normal sinus rhythm noted. Pulses within normal limits. Capillary refill less than 2 seconds. SKIN: Skin is warm and dry. --22:18 Sheriff Cuevas R.N. NURSING PROGRESS NOTES Oxygen administered by nasal cannula at 2 liters. stitching machine operator and pulse oximeter placed on patient. Head of bed elevated. Reassurance given. Two patient identifiers checked. Call light placed in reach. Side rails up x 2. Bed placed in lowest position. Brakes of bed on. Patient ready for evaluation- chart flagged. --22:19 Sheriff Cuevas R.N. ( Report received from URIEL Zhu). --22:27 Chuck Johnson R.N. 22:30 08/01/2016 Site #1 started via IV in the right antecubital space with an 20g angiocath, with aseptic technique and good blood return; one attempt. Blood drawn: rainbow set. Labeled in the presence of the patient and sent to the lab. Saline lock flushed with 10 mL saline. --22:30 Regina Quinteros R.N. EKG time: (2329). EKG was performed by a tech and shown to the ED physician. --23:29 Amber Romero Portable chest x-ray performed and shown to the ED physician. --23:45 Regina Quinteros R.N. Patient ID band checked for patient name and birthdate: patient confirmed urine collected with return of yellow-colored reinier-colored clear urine; sample sent to lab. Specimen labeled in the presence of the patient. Urine test negative. communications controller check passed. --00:19 Regina Quinteros R.N. EKG time: (0027). EKG was performed by a tech and shown to the ED physician. ( repeat ekg). --00:41 Amber Romero. DISPOSITION / DISCHARGE 01:46 08/02/2016 Site #1 removed upon discharge. Catheter intact. Bandage applied. --01:46 Ajith Kemp Departure time: 01:48. Condition at departure: improved. No learning barriers present. Discharge instructions provided and reviewed with the patient. Reviewed medication(s). Treatments reviewed. Reviewed referrals. Follow up contact number. Patient verbalized understanding. Written instructions provided in Portuguese. No warning instructions, diet instructions, activity restrictions or stop smoking instructions. No work note given or school note given. The patient was discharged by the physician. She was discharged home and accompanied by family. She left the Emergency Department ambulatory and via private vehicle. Family member driving. FALL RISK ASSESSMENT: Fall risk assessment completed. No fall risk identified. --01:48 Ajith Kemp 01:46 08/02/16. BP: 120/66. HR: 77. RR: 18. O2 saturation: 100%. Temp: deferred. Pain level now: 0/10. --01:48 Ajith Kemp Locked/Released at 08/02/2016 1:48 by Ajith Kemp
--- NOTE | 2016-08-02 01:15 | ED ORDER SUMMARY ---
..... Patient: JUNIOR BOWLES OrderSheet [facility] VisitID: [id number] [place] [address] 31y, F Registration Date/Time: 08/01/2016 ORDER SHEET Weight: 111.1 kg (stated) Allergies: Amoxicillin GENERAL ORDERS: Chest 1V Urgent (22:52 08/01/2016 Viridiana SCHMITT) (Ack 22:57 ALawrence ER Tech1) (23:45 RCollier R.N.) Real Estate Asset Manager (Continuous) (22:52 08/01/2016 Viridiana SCHMITT) (Ack 22:57 ALawrence ER Tech1) (23:20 ALawrence ER Tech1) EKG - ER Repeat (in 45 minutes ie 1145 pm) Stat (22:52 08/01/2016 Viridiana SCHMITT) (Ack 22:57 ALawrence ER Tech1) (0:45 LMuller) Cardiac Panel Stat (22:52 08/01/2016 Viridiana SCHMITT) (Ack 22:57 ALawrence ER Tech1) (23:19 ALawrence ER Tech1) BNP Urgent (22:52 08/01/2016 Viridiana SCHMITT) (Ack 22:57 ALawrence ER Tech1) (23:19 ALawrence ER Tech1) D-Dimer Urgent (22:52 08/01/2016 Viridiana SCHMITT) (Ack 22:57 ALawrence ER Tech1) (23:19 ALawrence ER Tech1) Oxygen (2 L/min) (NC) (22:52 08/01/2016 Viridiana SCHMITT) (Ack 22:57 ALawrence ER Tech1) (23:20 ALawrence ER Tech1) Pulse oximeter (22:52 08/01/2016 Viridiana SCHMITT) (Ack 22:57 ALawrence ER Tech1) (23:20 ALawrence ER Tech1) EKG - ER Stat (22:52 08/01/2016 Viridiana SCHMITT) (Ack 22:57 ALawrence ER Tech1) (23:29 LMuller) POC - Urine hCG (00:07 08/02/2016 Viridiana SCHMITT) (0:19 RCollier R.N.) MEDICATION ORDERS: IV FLUIDS: ORDER SHEET NOTES: [Electronically signed by Sasha Castro R.N. (01:48 08/02/2016)] [Electronically signed by Brown Ram MD (21:05 08/02/2016)] [Electronically locked/signed by Sasha Castro R.N. (01:48 08/02/2016)]
--- NOTE | 2016-08-02 21:05 | ED MAR SUMMARY ---
..... Medication Administration Record [facility] [address] [place], [place] [id number] Patient: JUNIOR BOWLES Visit ID: [id number] 31y, F Weight: 111.1 kg Height/Length: 68 in BMI: 37.3 ALLERGIES: Amoxicillin
--- NOTE | 2016-08-02 21:05 | ED MAR SUMMARY ---
..... Medication Administration Record [facility] [address] [place], [place] [id number] Patient: JUNIOR BOWLES Visit ID: [id number] 31y, F Weight: 111.1 kg Height/Length: 68 in BMI: 37.3 ALLERGIES: Amoxicillin
--- NOTE | 2016-08-02 21:05 | ED MED RECONCILIATION SUMMARY ---
Patient: JUNIOR BOWLES Medication Reconciliation Report [facility] VisitID: [id number] [address] [place] [address] 31y, F Registration Date/Time: 08/01/2016 Weight: 111.1 kg Height/Length: 68 in. BMI: 37.3 ALLERGIES: Amoxicillin The patient's Home Medications are listed below: THE FOLLOWING MEDICATIONS NEED TO BE RECONCILED: A DIABETIC MEDICATION PT UNSURE OF HydrOXYzine HCl Oral Novalog, sliding scale Omeprazole Oral Sertraline HCl Oral SulfaSALAzine Oral The source(s) of the original Home Medication information: Not obtained. The following Medications were given to the patient in the Emergency Department: None. The following Medications were prescribed to the patient: None.
--- NOTE | 2016-08-02 21:05 | ED MED RECONCILIATION SUMMARY ---
Patient: JUNIOR BOWLES Medication Reconciliation Report [facility] VisitID: [id number] [address] [place] [address] 31y, F Registration Date/Time: 08/01/2016 Weight: 111.1 kg Height/Length: 68 in. BMI: 37.3 ALLERGIES: Amoxicillin The patient's Home Medications are listed below: THE FOLLOWING MEDICATIONS NEED TO BE RECONCILED: A DIABETIC MEDICATION PT UNSURE OF HydrOXYzine HCl Oral Novalog, sliding scale Omeprazole Oral Sertraline HCl Oral SulfaSALAzine Oral The source(s) of the original Home Medication information: Not obtained. The following Medications were given to the patient in the Emergency Department: None. The following Medications were prescribed to the patient: None.
--- NOTE | 2016-08-02 21:05 | ED DISCHARGE INSTRUCTIONS ---
Patient: JUNIOR BOWLES General Instructions [facility] VisitID: [id number] [place] [address] 31y, F Registration Date/Time: 08/01/2016 Atypical chest pain INSTRUCTIONS (THE PAIN IS FROM YOUR CHEST WALL TRY IBUPROFEN 400 MG THREE TIMES A DAY FOR 5 DAYS IMMEDIATE RECHECK IN THE ED FOR INCREASED SHORTNESS OF BREATH OR CHEST PAIN. SEE YOUR DR FOR SURE FOR A RE EXAM.). Follow-up: Follow up with your doctor Monday in four days. Reason for referral: RE EVALUATE FOR CHEST PAIN. ADDITIONAL INFORMATION Chest Pain, Noncardiac Based on your visit today, the exact cause of your chest pain is not certain. Your condition does not seem serious and your pain does not appear to be coming from your heart. However, sometimes the signs of a serious problem take more time to appear. Therefore, please watch for the warning signs listed below. Home Care: Rest today and avoid strenuous activity. Take any prescribed medicine as directed. Follow Up with your doctor or this facility as instructed or if you do not start to feel better within 24 hours. Get Prompt Medical Attention if any of the following occur: A change in the type of pain: if it feels different, becomes more severe, lasts longer, or begins to spread into your shoulder, arm, neck, jaw or back Shortness of breath or increased pain with breathing Cough with dark colored sputum (phlegm) or blood Weakness, dizziness, or fainting Fever of 100.4F (38C) or higher, or as directed by your healthcare provider Swelling, pain or redness in one leg Chest Wall Pain: Costochondritis The chest pain that you have had today is caused by Costochondritis. This condition is due to an inflammation of the cartilage joining the ribs to the breastbone. It is not caused by heart or lung problems. Although the exact cause for costochondritis is not known, it often occurs during times of emotional stress. It can be painful, but it is not dangerous. It usually disappears within one to two weeks, but may recur. Rarely, a more serious condition may cause symptoms similar to costochondritis; therefore, watch for the warning signs listed below. Home Care: If you feel that emotional stress is a cause of your condition, try to identify sources of that stress. It may not be obvious! Learn ways to deal with the stress in your life such as regular exercise, muscle relaxation, meditation, or simply taking time out for yourself. For more information about this, consult your doctor or go to a local bookstore and review books and tapes available on the subject of stress reduction. You may use acetaminophen (Tylenol) or ibuprofen (Motrin, Advil) to control pain, unless another pain medicine was prescribed. [ NOTE: If you have liver disease or ever had a stomach ulcer, talk with your doctor before using these medicines.] The use of heat (hot wet compress or heating pad) with or without local analgesic creams (Deep Heat Rub, Robert Schultz) will be helpful to reduce pain. Follow Up with your doctor as directed or sooner if you do not start to improve within the next two days. Get Prompt Medical Attention if any of the following occur: A change in the type of pain: if it feels different, becomes more severe, lasts longer, or spreads into your shoulder, arm, neck, jaw or back Shortness of breath or increased pain with breathing Weakness, dizziness, or fainting Cough with dark colored sputum (phlegm) or blood Abdominal pain Dark red or black stools Fever of 100.4F (38C) or higher, or as directed by your healthcare provider You have been given the following additional information: Chest Pain, Noncardiac Chest Wall Pain, Costochondritis (Electronically signed by Brown Ram MD 08/02/2016 21:05)
== END 2016-08-02 01:40 | disposition home or self-care (01) ==
LOC: ED SRH 22:01
DX: R07.89 Other chest pain (principal); E11.9 Type 2 diabetes mellitus without complications
CPT/HCPCS: 90100; 90616; 91320; 91556; 92610; 92720; 95059